=== PATIENT | female | born 1970 | race Caucasian/White ===

== ENCOUNTER → 2020-11-15 10:59 | Outpatient (CLI) | payer OTHER, SELFPAY ==
--- NOTE | ~2020-11-15 | XR_ITS ---
EXAMINATION: XR foot LT min 3V DATE: 11/15/2020 11:13 INDICATION: Left foot pain and swelling TECHNIQUE: Dorsoplantar, lateral, and 2 oblique views of the left foot were obtained. COMPARISON: None. FINDINGS: There is no fracture, dislocation, or subluxation. There is mild osteoarthritis in the midf oot and in several interphalangeal joints. Soft tissues are unremarkable. A plantar calcaneal entheso phyte is noted. IMPRESSION: 1. No acute osseous abnormality. Reviewed, dictated and finalized at location A.
== END ==
PROVIDERS: PCP Family Medicine; Visit Provider Family Medicine
DX: M79.672 Pain in left foot (principal)
CPT/HCPCS: 73630

== ENCOUNTER 2022-01-23 00:13 | Day surgery (SDC) | payer OTHER, SELFPAY ==
[2022-01-14 12:26] VITALS: BMI 48.0
--- NOTE | 2022-01-22 13:10 | PM.HPGS ---
History of Present Illness History of Present Illness Consent: Risks, benefits, and alternatives have been discussed and questions answered. Patient agrees to proceed with procedure. Chief complaint: GERD, Diverticulitis Narrative: Rachael Squires is a 51 year old female WAS REFERRED FOR INVESTIGATION OF AN ABNORMAL CT SCAN. SHE RECENTLY HAD LOWER ABDOMINAL PAIN AND BLOODY MUCOID STOOLS. CT SCAN SHOWED THICKENING OF THE SIGMOID COLON CONSISTENT WITH DIVERTICULITIS. She has had episodes of diverticulitis in the past most of which she manages herself by going on a clear liquid diet. She had colonoscopy at another hospital a couple of years ago and Surprisingly,was told that she did not have any diverticular disease.She was treated with ciprofloxacin for 10 days and is feeling better.She also suffers from acid reflux symptoms. she takes omeprazole daily at bedtime if she misses a dose she has significant symptoms, particularly at night. Review of Systems Review of Systems: All systems reviewed & are unremarkable except as noted in HPI and below PMFSH Past Medical History Medical History Anxiety Asthma GERD (gastroesophageal reflux disease) IBS (irritable bowel syndrome) Surgical History Surgical History H/O arthroscopy of right knee Hx laparoscopic cholecystectomy Social History Social History Smoking status: Never smoker Alcohol intake: current Alcohol use details: rarely Substance use type: does not use Living arrangements: with family Spiritual care concerns: No Meds Home Medications and Allergies Home Medications Medication Instructions Recorded Confirmed Type albuterol sulfate 90 mcg/actuation 1 puff inhalation Q4H PRN asthma 11/13/21 01/14/22 History aerosol inhaler (ProAir HFA) baclofen 10 mg tablet 10 mg PO DAILY 11/13/21 01/14/22 History cetirizine 5 mg tablet 5 mg PO DAILY PRN allergies 11/13/21 01/14/22 History diclofenac sodium 75 mg 75 mg PO BID 11/13/21 01/14/22 History tablet,delayed release ergocalciferol (vitamin D2) 50 mcg 50 mcg PO DAILY 11/13/21 01/14/22 History (2,000 unit) capsule escitalopram oxalate 10 mg tablet 10 mg PO DAILY 11/13/21 01/14/22 History krill 1,000 mg-omega-3 170 mg-dha 1 cap PO BID 11/13/21 01/14/22 History 50 mg-epa 80 [id number] capsule (krill oil) montelukast 10 mg tablet 10 mg PO DAILY 01/14/22 01/14/22 History omeprazole 20 mg tablet,delayed 20 mg PO DAILY 01/14/22 01/14/22 History release Allergies Allergy/AdvReac Type Severity Reaction Status Date / Time No Known Allergies Allergy Verified 01/23/22 06:19 Exam Resp: Auscultation: clear to auscultation bilaterally Cardio: Rate: regular rate Rhythm: regular rhythm GI: GI Palp: Yes Soft to palpation and No Tenderness to palpation present (GI) Assessment and Plan Assessment and plan (1) Abnormal CT scan, gastrointestinal tract: Code(s): R93.3 - Abnormal findings on diagnostic imaging of other parts of digestive tract Status: Acute Assessment and Plan: Colonoscopy with possible biopsy or polypectomy or cautery or injection of substances. (2) GERD (gastroesophageal reflux disease): Code(s): K21.9 - Gastro-esophageal reflux disease without esophagitis Status: Acute Assessment and Plan: EGD with possible biopsy or dilatation or cautery.
[2022-01-23 06:21] VITALS: BP 139/72; PULSE 62; RESP 18; TEMP 36.1; O2SAT 100; BMI 46.7
[2022-01-23] MEDS: LACTATED RINGERS 1,000 ML 150 ML IV CONT (06:39)
--- NOTE | 2022-01-23 07:29 | P.PNAN_ITS ---
Anes - Initial Pre Proc Eval Procedure: Operation Date: 01/23/22 07:30 Proposed Procedures p Esophagogastroduodenoscopy & Colonoscopy - Gael Bravo MD Date/Time: 01/23/22 07:29 Surgeon: Gael Bravo MD Pre Op Diagnosis: GERD, Diverticulitis Patient Data Age: 51 Gender: F Height: 1.68 m Weight: 131.3 kg Last Vital Signs Temp 97 F L 01/23/22 06:21 Pulse 62 01/23/22 06:21 Resp 18 01/23/22 06:21 BP 139/72 01/23/22 06:21 Pulse Ox 100 01/23/22 06:21 O2 Del Method Room Air 01/23/22 06:21 Allergies Allergy/AdvReac Type Severity Reaction Status Date / Time No Known Allergies Allergy Verified 01/23/22 06:19 Home Medications Medication Instructions Recorded Confirmed Type albuterol sulfate 90 mcg/actuation 1 puff inhalation Q4H PRN asthma 11/13/21 01/14/22 History aerosol inhaler (ProAir HFA) baclofen 10 mg tablet 10 mg PO DAILY 11/13/21 01/14/22 History cetirizine 5 mg tablet 5 mg PO DAILY PRN allergies 11/13/21 01/14/22 History diclofenac sodium 75 mg 75 mg PO BID 11/13/21 01/14/22 History tablet,delayed release ergocalciferol (vitamin D2) 50 mcg 50 mcg PO DAILY 11/13/21 01/14/22 History (2,000 unit) capsule escitalopram oxalate 10 mg tablet 10 mg PO DAILY 11/13/21 01/14/22 History krill 1,000 mg-omega-3 170 mg-dha 1 cap PO BID 11/13/21 01/14/22 History 50 mg-epa 80 [id number] capsule (krill oil) montelukast 10 mg tablet 10 mg PO DAILY 01/14/22 01/14/22 History omeprazole 20 mg tablet,delayed 20 mg PO DAILY 01/14/22 01/14/22 History release Patient hx anesthesia problems: none Family hx anesthesia problems: none Results Review: All pre-operative results and documents have been reviewed as part of the pre- operative evaluation. [facility] Past Medical History Medical History Anxiety Asthma GERD (gastroesophageal reflux disease) IBS (irritable bowel syndrome) Surgical History Surgical History H/O arthroscopy of right knee Hx laparoscopic cholecystectomy Social History Social History Smoking status: Never smoker Alcohol intake: current Alcohol use details: rarely Substance use type: does not use Living arrangements: with family Spiritual care concerns: No Anes - Eval Final PreProcedure Day of Procedure 01/23/22 07:29 Patient weight: morbidly obese Heart: regular rate and rhythm Lungs: clear to auscultation Airway: Mallampati scale class III Neurological: alert and oriented Last oral intake: >/= 8 hours ASA classification: III Emergent: no Anesthetic plan: proceed Anesthesia type and monitoring: general GIVS and standard monitoring Results Review: All pre-operative results and documents have been reviewed as part of the pre- operative evaluation. Informed Consent: The patient's anesthetic plan and its attendant risks and benefits were discussed with the patient/family/POA. Questions were solicited and answers provided to the satisfaction of the patient/family/POA.
--- NOTE | 2022-01-23 07:48 | SUR.OPER ---
Egd ended 738; colonoscopy start time 744
[2022-01-23 08:01] VITALS: BP 104/58; PULSE 61; RESP 24; O2SAT 98
[2022-01-23 08:11] VITALS: BP 106/43; PULSE 70; RESP 21; O2SAT 97
[2022-01-23 08:21] VITALS: BP 128/80; PULSE 59; RESP 24; O2SAT 98
== END 2022-01-23 08:29 | disposition home or self-care (01) ==
PROVIDERS: PCP Family Medicine; Visit Provider Internal Medicine Gastroenterology
PROC: 0DJ08ZZ Inspection of Upper Intestinal Tract, Via Natural or Artificial Opening Endoscopic (ICD-10-PCS; CPT 43235; principal; 2022-01-23 07:30)
DX: K57.30 Diverticulosis of large intestine without perforation or abscess without bleeding (principal); K64.8 Other hemorrhoids; K31.7 Polyp of stomach and duodenum; K63.5 Polyp of colon; K21.9 Gastro-esophageal reflux disease without esophagitis; Z79.51 Long term (current) use of inhaled steroids; F41.9 Anxiety disorder, unspecified; J45.909 Unspecified asthma, uncomplicated; K58.9 Irritable bowel syndrome, unspecified; E66.01 Morbid (severe) obesity due to excess calories; Z68.42 Body mass index [BMI] 45.0-49.9, adult
CPT/HCPCS: 45380; 43239; 87081; 88305; J2704; J7120

== ENCOUNTER → 2022-02-05 16:28 | Outpatient (CLI) | payer OTHER, SELFPAY ==
--- NOTE | ~2022-02-05 | XR_ITS ---
XR shoulder RT min 2V DATE: 02/05/2022 17:48 INDICATION: Right shoulder pain TECHNIQUE: 4 views COMPARISON: None FINDINGS: No fracture or dislocation, periosteal reaction or bone destruction or abnormal soft tissue calcification of the right shoulder. IMPRESSION: No significant abnormality Reviewed, dictated and finalized at location A. IMPRESSION: No significant abnormality
== END ==
PROVIDERS: PCP Family Medicine; Visit Provider Family Medicine
DX: M25.511 Pain in right shoulder (principal)
CPT/HCPCS: 73030

== ENCOUNTER 2023-05-04 07:56 | Outpatient (CLI) | payer OTHER, SELFPAY ==
[2023-05-04 08:59] LABS: Anion Gap 8 mmol/L (8-16); Blood Urea Nitrogen 17 mg/dL (7-17); Calcium 9.1 mg/dL (8.4-10.2); Carbon Dioxide 27 mmol/L (22-30); Chloride 104 mmol/L (98-107); Estimated Glomerular Filt Rate 52; Glucose 112 mg/dL (65-110); Potassium 4.4 mmol/L (3.4-5.0); Sodium 139 mmol/L (137-145)
[2023-05-04 09:54] LABS: Free T4 Free Thyroxine 1.55 ng/mL (0.78-2.19)
== END 2023-05-04 07:57 | disposition home or self-care (01) ==
LOC: ANHLAB 08:03
PROVIDERS: PCP Family Medicine; Visit Provider Family Medicine
DX: E03.9 Hypothyroidism, unspecified (principal); R79.89 Other specified abnormal findings of blood chemistry
CPT/HCPCS: 36415; 80048; 84439; 84443

== ENCOUNTER 2023-08-27 08:54 | Emergency (ER) | payer OTHER, SELFPAY ==
[2023-08-27] VITALS (13 sets, daily range): BP systolic 109–127; BP diastolic 59–68; PULSE 54–67; RESP 10–27; TEMP 36.7; O2SAT 94–98
--- NOTE | ~2023-08-27 | XR_ITS ---
EXAMINATION: XR chest 2V DATE: 08/27/2023 09:56 INDICATION: Centralized chest pain TECHNIQUE: PA and lateral views of the chest were obtained. COMPARISON: Chest radiograph dated 02/10/23 FINDINGS: The lungs are clear with no focal airspace opacities, pulmonary edema, pleural effusion or pneumothor ax. The cardiomediastinal silhouette is normal. Visualized bones and soft tissues are unremarkable. IMPRESSION: 1. Normal chest radiograph. Reviewed, dictated and finalized at location A. IMPRESSION: 1. Normal chest radiograph.
--- NOTE | 2023-08-27 08:57 | ECG_ITS ---
Measurements Intervals [place] Rate: 68 P: 57 MD: 153 QRS: -3 QRSD: 106 T: 30 QT: 402 QTc: 430 Interpretive Statements SINUS RHYTHM WITHIN NORMAL LIMITS NO PREVIOUS ECG AVAILABLE FOR COMPARISON Electronically Signed On 08-27-2023 12:30:28 CDT by Forrest Diallo M.D.
[2023-08-27 09:23] LABS: Basophils Absolute Auto 0.1 K/mm3 (0.0-0.1); Basophils Percent Auto 1.4 % (0.2-1.2); Eosinophils Absolute Auto 0.3 K/mm3 (0-0.3); Eosinophils Percent Auto 5.8 % (0-4.4); Hematocrit 43.8 % (37.0-47.0); Hemoglobin 13.8 g/dL (12.0-15.0); Immature Granulocyte Absolute 0.02 K/mm3 (0.00-0.031); Immature Granulocyte Percent A 0.4 % (0-0.5); Lymphocytes Absolute Auto 1.45 K/mm3 (0.9-3.2); Lymphocytes Percent Auto 29.1 % (18.3-44.2); Mean Corpuscular HGB Conc 31.5 g/dl (32-36); Mean Corpuscular Hemoglobin 29.7 pg (26-34); Mean Corpuscular Volume 94.4 fl (80-100); Mean Platelet Volume 10.6 fl (7.4-10.4); Monocytes Absolute Auto 0.4 K/mm3 (0.1-0.6); Monocytes Percent Auto 8.8 % (2.6-8.5); Neutrophils Absolute Auto 2.7 K/mm3 (1.3-6.7); Neutrophils Percent Auto 54.5 % (45.5-73.1); Platelet Count Result 304 k/mm3 (150-375); Red Blood Count 4.64 M/mm3 (4.2-5.4); Red Cell Distribution Width 14.5 % (11.5-14.5)
[2023-08-27 09:32] LABS: INR 0.9; Prothrombin Time 12.9 Seconds (11.1-14.7)
[2023-08-27 09:33] LABS: Partial Thromboplastin Time 33.6 Seconds (22.3-36.8)
[2023-08-27 09:38] LABS: Alanine Aminotransferase 41 U/L (6-35); Albumin Level 4.3 g/dL (3.5-5.1); Alkaline Phosphatase 127 U/L (38-126); Anion Gap 5 mmol/L (4-12); Aspartate Amino Transferase 35 U/L (14-36); Bilirubin,Total 0.9 mg/dL (0.2-1.3); Blood Urea Nitrogen 17 mg/dL (7-17); Calcium 9.8 mg/dL (8.4-10.2); Carbon Dioxide 30 mmol/L (22-30); Chloride 106 mmol/L (98-107); Estimated CRCL calculation 76 ml/min; Estimated Glomerular Filt Rate 52; Glucose 112 mg/dL (65-110); Lipase 55 U/L (23-300); Potassium 4.2 mmol/L (3.4-5.0); Sodium 141 mmol/L (137-145)
[2023-08-27 09:49] LABS: Troponin I < 0.012 ng/mL (0.000-0.034)
[2023-08-27] MEDS: ASPIRIN 81 MG CHEWABLE TABLET 324 MG PO (10:34)
--- NOTE | 2023-08-27 11:40 | ED.CHESTPAIN ---
HPI - Chest Pain General Chief Complaint: Chest Pain Stated Complaint: chest pain Time Seen by Provider: 08/27/23 10:16 History of Present Illness HPI narrative: 53 old female presenting to the emergency department for evaluation substernal chest pain that radiated to right arm. Patient states this morning approximately 630 when she was getting ready she had onset of chest pain. Patient states the pain was intense when it 1st have been present since significantly improved. Patient reports the pain was never severe enough to feel like an elephant on her chest . Patient denies any prior history of [place]. Patient has had a prior stress test that was negative. Patient denies any prior history of PE or DVT. Related Data Home Medications Medication Instructions Recorded Confirmed albuterol sulfate 90 mcg/actuation 1 puff inhalation Q4H PRN asthma 11/13/21 01/14/22 aerosol inhaler (ProAir HFA) baclofen 10 mg tablet 10 mg PO DAILY 11/13/21 01/14/22 cetirizine 5 mg tablet 5 mg PO DAILY PRN allergies 11/13/21 01/14/22 diclofenac sodium 75 mg 75 mg PO BID 11/13/21 01/14/22 tablet,delayed release ergocalciferol (vitamin D2) 50 mcg 50 mcg PO DAILY 11/13/21 01/14/22 (2,000 unit) capsule escitalopram oxalate 10 mg tablet 10 mg PO DAILY 11/13/21 01/14/22 krill 1,000 mg-omega-3 170 mg-dha 1 cap PO BID 11/13/21 01/14/22 50 mg-epa 80 [id number]-qwgebx-qospa capsule (krill oil) montelukast 10 mg tablet 10 mg PO DAILY 01/14/22 01/14/22 omeprazole 20 mg tablet,delayed 20 mg PO DAILY 01/14/22 01/14/22 release Allergies Allergy/AdvReac Type Severity Reaction Status Date / Time No Known Allergies Allergy Verified 08/27/23 09:14 Review of Systems Review of Systems: All systems reviewed & are unremarkable except as noted in HPI and below PMFSH Past Medical History Medical History Anxiety Asthma GERD (gastroesophageal reflux disease) IBS (irritable bowel syndrome) Surgical History Surgical History H/O arthroscopy of right knee Hx laparoscopic cholecystectomy Social History Social History Smoking status: Never smoker Alcohol intake: current Alcohol use details: rarely Substance use type: does not use Living arrangements: with family Spiritual care concerns: No Exam Narrative: APPEARANCE: Well appearing, no pain, no distress, well-nourished. HEAD: normocephalic, atraumatic. EYES: PERRLA/EOMI, conjunctivae clear. NOSE: Normal no drainage NECK: Supple. No adenopathy, no masses. RESPIRATORY: Airway patent, respirations nonlabored. Clear to auscultation bilaterally, no rales, rhonchi, wheezing. CARDIOVASCULAR: Regular rate and rhythm without murmurs rubs or gallops. ABDOMINAL: Soft, nontender, nondistended, normal bowel sounds MUSCULOSKELETAL: Moves all extremities. Strength/ROM intact, No edema, No calf tenderness. no reproducible chest wall tenderness to palpation NEURO: Alert. Cranial nerves II through XII intact. Grossly intact SKIN: Warm, dry. Normal Color Course Course Emergency Course: patient was discharged home with instructions for outpatient follow-up Vital Signs Vital signs: Vital Signs Temperature 98.1 F 08/27/23 09:10 Pulse Rate 66 08/27/23 09:10 Respiratory Rate 18 08/27/23 09:10 Blood Pressure 123/66 08/27/23 09:10 Pulse Oximetry 98 08/27/23 09:10 Oxygen Delivery Room Air 08/27/23 09:10 Temperature 98.1 F 08/27/23 09:10 Pulse Rate 57 L 08/27/23 14:10 Respiratory Rate 18 08/27/23 14:10 Blood Pressure 121/65 08/27/23 14:10 Pulse Oximetry 97 08/27/23 14:10 Oxygen Delivery Room Air 08/27/23 10:15 MDM - Chest Pain MDM Narrative Medical decision making narrative: 53 old female presents emergency department for evaluation substernal chest pain. Patient is afebrile with n
--- NOTE | 2023-08-27 11:48 | ECG_ITS ---
Measurements Intervals [place] Rate: 51 P: 61 GA: 162 QRS: 14 QRSD: 94 T: 15 QT: 442 QTc: 408 Interpretive Statements SINUS BRADYCARDIA WITH SINUS ARRHYTHMIA OTHERWISE UNREMARKABLE ECG COMPARED TO ECG 08/27/2023 09:09:16 HEART RATE IS REDUCED, NO OTHER DIFFERENCE Electronically Signed On 08-27-2023 12:38:36 CDT by Forrest Diallo M.D.
[2023-08-27] MEDS: ACETAMINOPHEN 325 MG TABLET 650 MG PO (12:02)
[2023-08-27] MEDS: NITROGLYCERIN SL 0.4 MG TABLET SUBLINGUAL (12:05)
[2023-08-27 12:30] LABS: Troponin I < 0.012 ng/mL (0.000-0.034)
== END 2023-08-27 14:10 | disposition home or self-care (01) ==
PROVIDERS: Emergency Provider Emergency Medicine; PCP Family Medicine
DX: R07.9 Chest pain, unspecified (principal); J45.909 Unspecified asthma, uncomplicated; K21.9 Gastro-esophageal reflux disease without esophagitis; F41.9 Anxiety disorder, unspecified
CPT/HCPCS: 36415; 71046; 80053; 83690; 84484; 85025; 85610; 85730; 93005; 99284; A9270

== ENCOUNTER 2024-09-15 12:17 | Outpatient (CLI) | payer OTHER, SELFPAY ==
--- NOTE | ~2024-09-15 | MM_ITS ---
EXAMINATION: MM screening rody BI w dimitris HISTORY: Screening TECHNIQUE: Craniocaudal and mediolateral oblique 3-D tomosynthesis images were obtained and synthetic 2-D images were generated. CAD analysis was submitted and interpreted. COMPARISON: No prior mammogram is available for comparison at this institution. BREAST PARENCHYMAL COMPOSITION: Not Dense: The breasts are almost entirely fatty. FINDINGS: There is no evidence of suspicious mass, calcification, or architectural distortion to sugg est malignancy in either breast. There has been no suspicious interval change. IMPRESSION: 1. No mammographic evidence of malignancy. 2. Recommend routine screening mammography in one year. BI-RADS Category 1: Negative Reviewed, dictated and finalized at location A.
== END 2024-09-15 12:18 | disposition home or self-care (01) ==
LOC: MICIMG 12:17
PROVIDERS: PCP Nurse Practitioner Family; Visit Provider Nurse Practitioner Family
DX: Z12.31 Encounter for screening mammogram for malignant neoplasm of breast (principal)
CPT/HCPCS: 77063; 77067

== ENCOUNTER 2025-05-06 06:29 | Outpatient (CLI) | payer OTHER, SELFPAY ==
[2025-05-06 06:51] LABS: Hematocrit 42.0 % (37.0-47.0); Hemoglobin 13.5 g/dL (12.0-15.0); Immature Granulocyte Percent A 0.2 % (0-0.5); Lymphocytes Absolute Auto 1.68 K/mm3 (0.9-3.2); Mean Corpuscular HGB Conc 32.1 g/dl (32-36); Mean Corpuscular Hemoglobin 29.5 pg (26-34); Mean Corpuscular Volume 91.7 fl (80-100); Nucleated Red Blood Cells Absolute Auto 0.000 K/mm3 (0.0-0.012); Nucleated Red Blood Cells Perc 0.0 % (0.0-0.2); Platelet Count Result 256 k/mm3 (150-375); Red Blood Count 4.58 M/mm3 (4.2-5.4); White Blood Count 5.6 K/mm3 (4.5-10.0)
[2025-05-06 07:03] LABS: Hemoglobin A1C 6.2 % (<5.7)
[2025-05-06 07:12] LABS: Alanine Aminotransferase 55 U/L (6-35); Albumin Level 4.1 g/dL (3.5-5.1); Alkaline Phosphatase 132 U/L (38-126); Anion Gap 6 mmol/L (4-12); Aspartate Amino Transferase 46 U/L (14-36); Bilirubin,Total 0.9 mg/dL (0.2-1.3); Blood Urea Nitrogen 16 mg/dL (7-17); Calcium 9.1 mg/dL (8.4-10.2); Carbon Dioxide 25 mmol/L (22-30); Chloride 107 mmol/L (98-107); Cholesterol 208 mg/dL (0-200); Estimated Glomerular Filt Rate 58; Glucose 117 mg/dL (65-110); HDL Direct 35 mg/dL; Potassium 4.2 mmol/L (3.4-5.0); Sodium 138 mmol/L (137-145); Total Protein 7.6 g/dL (6.3-8.2); Triglycerides 187 mg/dL (<150)
[2025-05-06 07:42] LABS: Thyroid Stimulating Hormone Reflex 6.080 uIU/mL (0.465-4.68)
[2025-05-06 08:16] LABS: Free T4 Free Thyroxine Reflex 1.36 ng/dL (0.78-2.19)
[2025-05-06 09:16] LABS: Total Triiodothyronine (T3) 1.36 NG/ML (0.82-1.58)
== END 2025-05-06 06:30 | disposition home or self-care (01) ==
LOC: ANHLAB 06:31
PROVIDERS: PCP Nurse Practitioner Family; Visit Provider Nurse Practitioner Family
DX: E55.9 Vitamin D deficiency, unspecified (principal); E03.9 Hypothyroidism, unspecified; K58.9 Irritable bowel syndrome, unspecified; J45.909 Unspecified asthma, uncomplicated
CPT/HCPCS: 36415; 80053; 80061; 82306; 83036; 84439; 84443; 84480; 85025